=== PATIENT | female | born 1955 | race Caucasian/White ===

== ENCOUNTER 2025-06-02 16:56 | Emergency (ER) | payer MEDICARE, SELFPAY ==
--- NOTE | ~2025-06-02 | XR_ITS ---
EXAMINATION: XR chest 2V, 06/02/2025 17:15 HEALTHCARE ECONOMICS CONSULTANT HISTORY: fall COMPARISON: No comparisons available. Technique: 2 views obtained. Findings: The lungs are clear, no effusion. No pneumothorax. Heart is normal size. Mediastinal and hilar contours are within normal limits. Poststernotomy. Left pacemaker. Impression: No acute cardiopulmonary abnormality. Reviewed, dictated and finalized at location P. THCARE ECONOMICS CONSULTANT Impression: No acute cardiopulmonary abnormality.
--- NOTE | ~2025-06-02 | CT_ITS ---
EXAMINATION: CT brain wo jerzy, 06/02/2025 17:34 BEEF CATTLE FARM MANAGER HISTORY: fall, head injury COMPARISON: No comparisons available. Technique: Axial images obtained of the brain without contrast. One or more of the following dose reduction techniques were used: automated exposure control, adjustment of the mA and/or kV according to patient size, use of iterative reconstruction technique. Findings: There is a remote left basal ganglia lacunar infarct, no acute infarct or hemorrhage. No midline shift or mass effect. No extra-axial fluid collections. Mastoid air cells unremarkable. Sinuses and orbits unremarkable. No acute fracture. No significant facial or scalp soft tissue swelling evident. No radiopaque foreign body is seen. Impression: 1.No acute intracranial abnormality. Reviewed, dictated and finalized at location P. CATTLE FARM MANAGER Impression: 1.No acute intracranial abnormality.
--- NOTE | ~2025-06-02 | XR_ITS ---
EXAMINATION: XR hand LT min 3V, 06/02/2025 17:15 INSPECTOR RECEIVING HISTORY: left hand pain, fall COMPARISON: No comparisons available. Findings: No acute fracture or malalignment. Moderate degenerative changes of the first metacarpal carpal joint Soft tissues unremarkable. Impression: No acute fracture or malalignment. Reviewed, dictated and finalized at location P. ECTOR RECEIVING Impression: No acute fracture or malalignment.
--- NOTE | ~2025-06-02 | XR_ITS ---
EXAMINATION: XR hip RT 2V w AP pelvis, 06/02/2025 17:20 DREDGE PUMPER HISTORY: right hip pain, fall COMPARISON: No comparisons available. Findings: Fixation of the right femoral neck, the hardware is intact, no acute fracture. Moderate degenerative changes. Soft tissues unremarkable. Impression: No acute fracture or malalignment. Reviewed, dictated and finalized at location P. GE PUMPER Impression: No acute fracture or malalignment.
--- NOTE | ~2025-06-02 | XR_ITS ---
EXAMINATION: XR knee RT 3V, 06/02/2025 17:30 PLASTICS SUPERVISOR HISTORY: right knee pain, fall COMPARISON: No comparisons available. Findings: No acute fracture or malalignment. No significant degenerative changes. Soft tissues unremarkable. Impression: No acute fracture or malalignment. Reviewed, dictated and finalized at location P. TICS SUPERVISOR Impression: No acute fracture or malalignment.
--- NOTE | ~2025-06-02 | CT_ITS ---
EXAMINATION: CT facial & cervical spine wo COMPARISON: None HISTORY: fall, head injury TECHNIQUE: Axial images were obtained without IV contrast. Sagittal, coronal reconstruction images were obtained from the axial views. CT scan performed using dose optimization techniques including the following automated exposure control; adjustment of mA and/or kV; use of iterative reconstruction technique. Automatic exposure control was used to reduce radiation dose. Permanent radiation dose record is archived to PACS. FINDINGS: CT facial bones: The nasal bones are intact. Anterior maxillary sinus gaytan and zygomatic arches are intact. Temporomandibular joints are intact. The orbital floors and medial orbits are intact. No significant maxillary sinusitis. There is minimal ethmoidal sinusitis. Postsurgical changes noted in the right optic globe. No retrobulbar hemorrhage. There is no preseptal soft tissue swelling. The remaining soft tissues appear unremarkable. CT cervical spine: Soft tissues are unremarkable. The lung apices demonstrate chronic changes with apical scarring bilaterally. Grade 1 anterolisthesis of C4 on C5, no acute fracture. Moderate to severe loss of disc height at C5-6 and C6- 7 with moderate to severe canal and foraminal stenosis. IMPRESSION: No acute fracture identified Reviewed, dictated and finalized at location P. KER OPERATOR
[2025-06-02 17:08] VITALS: BP 118/56; PULSE 78; RESP 18; TEMP 36.2; O2SAT 97
--- NOTE | 2025-06-02 17:13 | ED.FALL ---
HPI - Fall General Chief Complaint: Fall <Rani Dye PA-C - Last Filed: 06/11/25 14:59> Stated Complaint: fall <Rani Dye PA-C - Last Filed: 06/11/25 14:59> Time Seen by Provider: 06/02/25 17:13 <Rani Dye PA-C - Last Filed: 06/11/25 14:59> Focused HPI: This is a 69 year old female that presents to the ER for a fall today. Reports she tripped and fell forward. Hit her head. She did not lose consciousness. She does take blood thinners. Reports left hand injury, right knee pain, right hip pain. GENERAL: Well-appearing, well-nourished, and in no acute distress. HEAD: Normocephalic. Bruising to the chin CHEST: Clear to auscultation. ?No respiratory distress. HEART: Regular rate and rhythm.? NEURO: ?Alert and oriented x3. Patient screened in triage and initial orders placed.? ?Additional care and disposition to be based upon?diagnostic testing and treatment. <Rani Dye PA-C - Last Filed: 06/11/25 14:59> History of Present Illness HPI Narrative: I agree with the HPI above. <Emy Paniagua APRN - Last Filed: 06/02/25 20:41> Related Data Allergies/Adverse Reactions: Allergies Allergy/AdvReac Type Severity Reaction Status Date / Time ceftriaxone (From Rocephin) Allergy Severe Rash Verified 06/02/25 17:16 codeine Allergy Mild Rash Verified 06/02/25 17:16 <Rani Dye PA-C - Last Filed: 06/11/25 14:59> Review of Systems Review of Systems: All systems reviewed & are unremarkable except as noted in HPI and below <Rani Dye PA-C - Last Filed: 06/11/25 14:59> Exam Narrative: GENERAL: Well-appearing, well-nourished, non-toxic, in no acute distress. HEAD: Normocephalic, abrasion with dried blood to pt's chin NECK: Supple. No adenopathy, no masses. RESPIRATORY: Airway patent, respirations nonlabored. Clear to auscultation bilaterally, no rales, rhonchi, wheezing. CARDIOVASCULAR: Regular rate and rhythm without murmurs, rubs, or gallops. Peripheral pulses 2+ and equal bilaterally. ABDOMINAL: Soft, nontender, nondistended, no hepatosplenomegaly. Normoactive BS. MUSCULOSKELETAL: Moves all extremities. Strength/ROM intact without gross deformities. SKIN: Warm, dry, normal color. No rashes. mild L wrist/forearm bruising NEURO: A&O X3. Speech clear. Cranial nerves II-XII intact. PSYCHIATRIC: Appropriate mood and affect. Normal interaction. <Emy Paniagua, SENIOR FINANCIAL - Last Filed: 06/02/25 20:41> Course Vital Signs Vital signs: Vital Signs Temperature 97.1 F L 06/02/25 17:08 Pulse Rate 78 06/02/25 17:08 Respiratory Rate 18 06/02/25 17:08 Blood Pressure 118/56 L 06/02/25 17:08 Pulse Oximetry 97 06/02/25 17:08 Oxygen Delivery Room Air 06/02/25 17:08 Temperature 97.1 F L 06/02/25 17:08 Pulse Rate 78 06/02/25 17:08 Respiratory Rate 18 06/02/25 17:08 Blood Pressure 118/56 L 06/02/25 17:08 Pulse Oximetry 97 06/02/25 17:08 Oxygen Delivery Room Air 06/02/25 17:08 <Rani Dye PA-C - Last Filed: 06/11/25 14:59> Vital Signs Temperature 97.1 F L 06/02/25 17:08 Pulse Rate 78 06/02/25 17:08 Respiratory Rate 18 06/02/25 17:08 Blood Pressure 118/56 L 06/02/25 17:08 Pulse Oximetry 97 06/02/25 17:08 Oxygen Delivery Room Air 06/02/25 17:08 Temperature 97.1 F L 06/02/25 17:08 Pulse Rate 78 06/02/25 17:08 Respiratory Rate 18 06/02/25 17:08 Blood Pressure 118/56 L 06/02/25 17:08 Pulse Oximetry 97 06/02/25 17:08 Oxygen Delivery Room Air 06/02/25 17:08 <Emy Paniagua, SENIOR FINANCIAL - Last Filed: 06/02/25 20:41> MDM - Fall MDM Narrative Medical decision making narrative: This is a 69 year old female that presents to the ER for a fall today. Reports she tripped and fell forward. Hit her head. She did not lose consciousness. She does take blood thinners. Reports left hand injury, right knee pain, right hip pain. 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 Results: Pt's head CT scan indicates There is a remote left basal ganglia lacunar infarct, no acute infarct or hemorrhage. No midline shift or mass effect. No extra-axial fluid collections. Mastoid air cells unremarkable. Sinuses and orbits unremarkable. No acute fracture. No significant facial or scalp soft tissue swelling evident. No radiopaque foreign body is seen. Pt's CT facial and cervical spine indicates CT facial bones: The nasal bones are intact. Anterior maxillary sinus gaytan and zygomatic arches are intact. Temporomandibular joints are intact. The orbital floors and medial orbits are intact. No significant maxillary sinusitis. There is minimal ethmoidal sinusitis. Postsurgical changes noted in the right optic globe. No retrobulbar hemorrhage. There is no preseptal soft tissue swelling. The remaining soft tissues appear unremarkable. CT cervical spine: Soft tissues are unremarkable. The lung apices demonstrate chronic changes with apical scarring bilaterally. Grade 1 anterolisthesis of C4 on C5, no acute fracture. Moderate to severe loss of disc height at C5-6 and C6-7 with moderate to severe canal and foraminal stenosis. Diagnosis: Concussion without loss of consciousness, fall Patient Education/Shared MDM: Results of imaging shared with patient and her family. She endorses significant pain to her chin and left wrist. Patient will be given a dose of [place] here in the ER prior to discharge. She was strongly advised to maintain hydration status upon discharge. Patient should follow-up with her specialists as planned, but follow-up with her PCP as soon as possible. She will be discharged home with a prescription for lidocaine patches. Strict return precautions provided. Patient verbalized understanding and is in agreement with plan. Vital signs stable at time of discharge. All questions answered. <Emy Paniagua, SENIOR FINANCIAL - Last Filed: 06/02/25 20:41> Differential Diagnosis Differential diagnosis: Likely concussion without loss of consciousness and other (Facial trauma, left wrist fracture, left wrist sprain) <Emy Paniagua APRN - Last Filed: 06/02/25 20:41> Imaging Data Attestation: I personally reviewed and interpreted this imaging study as follows: <Emy Paniagua APRN - Last Filed: 06/02/25 20:41> Radiologist's impression: Impressions Chest X-Ray 06/02/25 17:38 Impression: No acute cardiopulmonary abnormality. Hip/Pelvis X-Ray 06/02/25 17:38 Impression: No acute fracture or malalignment. Knee X-Ray 06/02/25 17:38 Impression: No acute fracture or malalignment. Hand X-Ray 06/02/25 17:39 Impression: No acute fracture or malalignment. Head CT 06/02/25 17:43 Impression: 1.No acute intracranial abnormality. Head/Cervical Spine/Facial Bones CT 06/02/25 17:46 IMPRESSION: No acute fracture identified <Emy Paniagua APRN - Last Filed: 06/02/25 20:41> Discharge Plan Discharge Clinical Impression: Fall, Concussion without loss of consciousness, Abrasion of chin, Left wrist sprain <Rani Dye PA-C - Last Filed: 06/11/25 14:59> Patient Disposition: Home <Rani Dye PA-C - Last Filed: 06/11/25 14:59> Condition: Stable <MARIAN Su Last Filed: 06/11/25 14:59> Instructions: Antibiotic Form, Concussion (ED), Abrasion (ED) <Rani Dye PA-C - Last Filed: 06/11/25 14:59> Additional Instructions: Please return to the ER with any worsening symptoms. Follow-up with primary care provider as soon as possible for further evaluation. Take all medications as prescribed, including regularly scheduled medications. You may take Tylenol as needed for pain control. Please use lidocaine patches as needed for additional pain relief. <Rani Dye PA-C - Last Filed: 06/11/25 14:59> Patient Language: Japanese <Rani Dye PA-C - Last Filed: 06/11/25 14:59> Prescriptions: New lidocaine 5 % adhesive patch,medicated 1 patch topical DAILY Qty: 30 0RF Rx Instructions: leave on most painful area for up to 12 hrs <Rani Dye PA-C - Last Filed: 06/11/25 14:59> Follow-up/Referrals: PHYSICIAN NOT ON STAFF,NONSTAFF [Primary Care Provider] <Rani Dye PA-C - Last Filed: 06/11/25 14:59> Time of Disposition: 20:41 <Rani Dye PA-C - Last Filed: 06/11/25 14:59> 20:41 <Emy Paniagua APRN - Last Filed: 06/02/25 20:41>
== END 2025-06-02 21:04 | disposition home or self-care (01) ==
PROVIDERS: Emergency Provider Registered Nurse
DX: S06.0X0A Concussion without loss of consciousness, initial encounter (principal); S63.502A Unspecified sprain of left wrist, initial encounter; S00.81XA Abrasion of other part of head, initial encounter; W01.0XXA Fall on same level from slipping, tripping and stumbling without subsequent striking against object, initial encounter
CPT/HCPCS: 70450; 70486; 71046; 72125; 73130; 73502; 73562; 99284